=== PATIENT | male | born 1960 | race Caucasian/White ===

== ENCOUNTER → 2016-12-31 19:13 | Outpatient (CLI) | payer OTHER | END | disposition home or self-care (01) | LOC: D.LABREF 19:13 | DX: L98.9 Disorder of the skin and subcutaneous tissue, unspecified (principal) ==

== ENCOUNTER 2019-04-08 05:43 | Day surgery (SDC) | payer OTHER ==
[~2019-04-08] VITALS: Ht 180.3 cm; Wt 113.6 kg
[2019-04-08 07:22] LABS: ANION GAP 13.1 mmol/L (8-16); CALCIUM 9.1 mg/dL (8.5-10.1); CREATININE - SERUM 1.2 mg/dL (0.6-1.3); POTASSIUM - SERUM 4.1 mmol/L (3.5-5.1)
[2019-04-08] MEDS ORDERED: COREG25 MG PO (07:36)
[2019-04-08] MEDS ORDERED: HYDROCHLOROTH12.5 M1 PO (07:36)
[2019-04-08] MEDS ORDERED: COZAAR100 MG PO (07:37)
[2019-04-08] MEDS ORDERED: CRESTOR10 MG (07:37)
[2019-04-08] MEDS ORDERED: BAYER CHEWABLE81 MG PO (07:38)
[2019-04-08] MEDS ORDERED: PRILOSEC OTC (07:39)
[2019-04-08 07:46] LABS: HEMATOCRIT 48.6 % (42.0-54.0); HEMOGLOBIN 16.4 g/dL (13.5-17.5); MCH 31.7 pg (26.0-34.0); MCHC 33.7 g/dL (31.0-37.0); MCV 93.8 fL (80.0-100.0); MEAN PLATELET VOLUME 11.2 fL (7.4-10.4); RBC 5.18 10x6/uL (4.20-6.10); RDW 13.1 % (11.5-14.5); WBC 9.3 10x3/uL (4.8-10.8)
[2019-04-08 07:57] VITALS: BP 134/74; Ht 180.3 cm; Wt 113.6 kg
--- NOTE | 2019-04-08 19:01 | OP ---
PATIENT NAME: MARIO MCMANUS MEDICAL RECORD: [id number] :64 LOCATION:D.OPS ADMISSION DATE: SURGEON: EDVIN JOHNSON MD DATE OF OPERATION: 04/08/2019 PREOPERATIVE DIAGNOSES: 1. History of transverse colon polyp. 2. History of a very large rectal polyp at 10 cm. POSTOPERATIVE DIAGNOSES: 1. History of transverse colon polyp. 2. History of a very large rectal polyp at 10 cm. 3. Mild left-sided diverticulosis. PROCEDURES: 1. Total colonoscopy to cecum. 2. Endoscopic mucosal resection, polypectomy of the rectal polyp with epinephrine injection, Eleview injection and placement of 5 endoscopic clips for hemostasis as well as tissue reinforcement. 3. Snare polypectomy of the transverse colon polyp with the placement of 3 endoscopic clips for tissue reinforcement and hemostasis. SURGEON: Edvin Johnson MD PROCESSOR SOLID PROPELLANT: None. BLOOD LOSS: Minimal. ANESTHESIA: IV sedation. COMPLICATIONS: None. The risks, possible complications and alternatives to the procedure were explained to the patient. He elects to proceed. I specifically discussed with him the risk that he may require further therapy such as chemotherapy, radiation and that endoscopic perforation was also a possibility. The reason for the anesthesia staff being present during the procedure includes the patient's sleep apnea and the possible need for airway manipulation, which was necessary during the procedure. ENDOSCOPIC COURSE: The patient was conveyed to endoscopy suite electively on 04/08/2019. IV sedation was induced by the anesthesia staff. The patient was placed in the Kim position. A digital rectal examination was performed. A colonoscope was inserted through the anus. It was easily advanced to the cecum. The prep was adequate. I slowly withdrew the endoscope. The pullback was greater than a 40-minute pullback. I dragged the folds. I utilized normal imaging as well as narrow band imaging. There was a transverse colon polyp, which was a 2.3 cm polyp. I advanced an endoscopic snare. Utilizing the coagulation setting and then the cut setting, I performed a snare polypectomy. There was a tiny bit of residual polypoid tissue. This was ablated with the argon plasma wet roaster utilizing the right colon setting in the forced mode. I then placed a row of endoscopic clips at the polypectomy site for tissue reinforcement as well as for hemostasis. OPERATIVE REPORT [id number] MARIO MCMANUS I then grasped the polyp with an endoscopic retrieval net and withdrew it out through the anus. I readvanced the endoscope. I advanced it to a very large somewhat pedunculated polyp at 10 cm. At the base of the polyp, I injected epinephrine into the submucosal space for post-procedural hemostasis. I then injected Eleview into the submucosal space to lift the polyp. I advanced an endoscopic snare. I placed the snare around the base of the polyp and utilizing the coagulation setting and then the cut setting, I performed the polypectomy. There was a tiny bit of residual polypoid tissue around the edges and most of this was removed utilizing cold biopsy forceps. Some additional polypoid tissue was ablated with the argon plasma wet roaster utilizing the right colon setting in the forced mode. I then placed a row of endoscopic clips for postprocedural hemostasis as well as tissue reinforcement. I then advanced an endoscopic retrieval net, placed it around the polyp and then withdrew it out through the anus. The patient was then conveyed back to his room. I would give him a dose of meropenem before he leaves. Additionally, a prescription for Flagyl. He is to call if he has a fever above 102.0 Fahrenheit. TRANSINT:[id number] Voice Confirmation ID: [id number] DOCUMENT ID: [id number] EDVIN JOHNSON MD at 1901 CC: MERLIN CONTRERAS MD and NATALIO ARAYA [id number] DICTATION DATE: 04/08/19 1014 MEDICAL ASST: 04/08/19 1514 [facility] 04/08/[address] [facility] [address] [place] [address]
== END 2019-04-08 11:55 | disposition home or self-care (01) ==
LOC: D.OPS 05:43
PROVIDERS: Anesthesiology; ATTEND Surgery
DX: Z86.010 Personal history of colon polyps (principal); Z87.19 Personal history of other diseases of the digestive system

== ENCOUNTER 2020-09-05 11:06 | Day surgery (SDC) | payer BC ==
[~2020-09-05] VITALS: Ht 180.3 cm; Wt 108.2 kg
--- NOTE | ~2020-09-05 | OP ---
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 POSTOPERATIVE DIAGNOSES: 1. 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 2. One new sessile polyp, which is a 7 mm polyp. PROCEDURE: 1. Total colonoscopy to cecum. 2. Hot biopsy forceps polypectomy x1. 3. Cold endoscopic biopsies of the rectal scar at 10 cm. 4. Re-treatment of the scar at 10 cm, with the argon plasma used car make ready worker utilized in the forced mode in the rectal setting. SURGEON: Vasquez Johnson MD SUPERVISOR SINTERING PLANT: None. BLOOD LOSS: Minimal. ANESTHESIA: IV sedation. COMPLICATIONS: None. The risks, possible complications, and alternatives of the procedure were explained to the patient. He elects to proceed. ENDOSCOPIC COURSE: The patient was conveyed to the endoscopy suite electively on 09/05/2020. IV sedation was induced by the anesthesia staff. The patient was placed in the Kim position. A digital rectal examination was performed. A colonoscope was inserted through the anus. It was easily advanced into the cecum. The prep was adequate. I slowly withdrew the endoscope. I irrigated and aspirated extensively. I dragged the folds. A combination of normal imaging and narrow band imaging were utilized. One sessile polyp was removed utilizing hot biopsy forceps polypectomy technique. In the rectum, there was a scar present for 10 cm where the prior polyp that contained carcinoma in situ had been. I saw no regrowth of polyp. I re-biopsied the area to check for small mass or regrowth. The scar was then re-treated with the argon plasma used car make ready worker utilized rectal setting in the forced mode. There was no bleeding. A retroflex view was obtained in the rectum. I then unretroflexed the scope and removed it under direct vision. I will see the patient in my office in 2-3 weeks. I will plan for next surveillance colonoscopy to take place in 2 years. TRANSINT:[id number] Voice Confirmation ID: [id number] DOCUMENT ID: [id number] OPERATIVE REPORT [id number] MARIO MCMANUS VASQUEZ JOHNSON MD CC: [id number] DICTATION DATE: 09/05/20 1705 [facility]ER: 09/06/20 0127 [facility] 09/05/20 [facility] [address] [id number]
[~2020-09-05 11:06] MED LIST: BAYER CHEWABLE81 MG PO; COREG25 MG PO; COZAAR100 MG PO; CRESTOR10 MG; HYDROCHLOROTH12.5 M1 PO; PRILOSEC OTC
[2020-09-05 11:46] LABS: ANION GAP 14.5 mmol/L (8-16); CALCIUM 9.6 mg/dL (8.5-10.1); CARBON DIOXIDE 25.6 mmol/L (21.0-32.0); CREATININE - SERUM 1.4 mg/dL (0.6-1.3); POTASSIUM - SERUM 5.1 mmol/L (3.5-5.1)
[2020-09-05 11:47] LABS: BASOPHILS 1.5 % (0-2); EOSINOPHILS 4.7 % (0-7); HEMATOCRIT 46.6 % (42.0-54.0); HEMOGLOBIN 15.5 g/dL (13.5-17.5); LYMPHOCYTES 17.2 % (15-50); MCHC 33.3 g/dL (31.0-37.0); MCV 92.9 fL (80.0-100.0); MEAN PLATELET VOLUME 9.1 fL (7.4-10.4); NEUTROPHILS 65.6 % (40-80); RBC 5.02 10x6/uL (4.20-6.10); RDW 14.1 % (11.5-14.5); WBC 5.9 10x3/uL (4.8-10.8)
[2020-09-05 11:54] LABS: PLATELET COUNT 214 10x3/uL (130-400)
[2020-09-05 13:26] VITALS: BP 122/59; Ht 180.3 cm; Wt 108.2 kg
--- NOTE | 2020-09-05 15:50 | NUR ---
1540 DR. ALEX RENE.
--- NOTE | 2020-09-05 15:59 | NUR ---
1600 DR. ALEX RENE.
== END 2020-09-05 15:40 | disposition home or self-care (01) ==
LOC: D.OPS 11:06
PROVIDERS: ATTEND Surgery
DX: Z86.010 Personal history of colon polyps (principal); K63.5 Polyp of colon; D01.0 Carcinoma in situ of colon; I10 Essential (primary) hypertension; E11.9 Type 2 diabetes mellitus without complications; E78.5 Hyperlipidemia, unspecified